=== PATIENT | female | born 1930 | race Caucasian/White ===

== ENCOUNTER 2017-08-01 07:31 | Emergency (ER) | payer OTHER ==
[~2017-08-01] VITALS: Ht 152.4 cm; Wt 56.7 kg
[~2017-08-01 07:31] MED LIST: ASPIRIN81 MG PO; CAR30 PO; ECOTRIN81 MG PO; LAC PO; LEVAQUIN750 MG PO; LEVODOPA1 POW PO; MIRALAX17 GM/Dose PO; MOTRIN800 MG PO; MYS50 PO; MYSOLINE50 MG PO; RESTORIL15 MG; RESTORIL15 MG PO; RESTORIL30 MG; SIMVASTATIN10 M1 PO; SINEMET 25-1001 TAB PO; TEGRETOL200 MG PO; TOVIAZ4 M1 PO; VESICARE10 M1
[2017-08-01 09:06] VITALS: BP 137/70
== END 2017-08-01 09:42 | disposition home or self-care (01) ==
LOC: ED 07:31
DX: S01.21XA Laceration without foreign body of nose, initial encounter (principal); S09.90XA Unspecified injury of head, initial encounter; G20 Parkinson's disease; E78.00 Pure hypercholesterolemia, unspecified; Z88.0 Allergy status to penicillin; Z88.2 Allergy status to sulfonamides; W01.190A Fall on same level from slipping, tripping and stumbling with subsequent striking against furniture, initial encounter; Y93.89 Activity, other specified; Y99.8 Other external cause status; Y92.002 Bathroom of unspecified non-institutional (private) residence as the place of occurrence of the external cause
CPT/HCPCS: 90715